=== PATIENT | male | born 1970 | race Caucasian/White ===

== ENCOUNTER → 2016-12-28 | Outpatient (CLI) | payer BC ==
--- NOTE | 2016-12-29 01:57 | US ---
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 Findings: The liver is mildly enlarged. There is diffuse increased echogenicity of the liver consistent with fatty infiltration. There are no intrahepatic masses. There is no intrahepatic ductal dilatation. The gallbladder is normal in size and appearance. There are no gallstones. There is no gallbladder wall thickening or pericholecystic fluid. The extrahepatic common duct is normal in size measuring 4 mm. The spleen is normal in size and contour. There is normal internal echogenicity of the spleen. There are no splenic masses. The visualized portions of the pancreas are normal. The aorta has a normal appearance. The right kidney is normal in size and contour. The right kidney measures 12.4 cm in bipolar length. Cortical thickness and echogenicity are normal. There are no masses, calculi, or hydronephrosis. The left kidney is normal in size and contour. The left kidney measures 13.3 cm in bipolar length. Cortical thickness and echogenicity are normal. There are no masses, calculi, or hydronephrosis. There is no ascites. Impression: 1. Hepatomegaly. 2. Hepatic steatosis. Electronically signed by: Shashi Aguilar MD 12/29/2016 1:56 AM CDT
== END | disposition home or self-care (01) ==
LOC: US 09:58
PROVIDERS: ATTEND Family Medicine
DX: R79.89 Other specified abnormal findings of blood chemistry (principal)